=== PATIENT | male | born 1960 | race African-American/Black ===

== ENCOUNTER 2016-05-28 11:50 | Emergency (ER) | payer MEDICAID ==
[~2016-05-28] VITALS: Ht 177.8 cm; Wt 69.0 kg
[2016-05-28] MEDS ORDERED: TETANUS, DIPHTHERIA, PERTUSSIS VAC/PF 0.5ML (>7YR OLD) IM ONE (12:30)
[2016-05-28] MEDS ORDERED: LIDOCAINE HCL 1% 20ML VIAL (Pyxis) INJ INFIL ONE (13:15)
[2016-05-28 14:35] VITALS: BP 145/89
== END 2016-05-28 15:17 | disposition home or self-care (01) ==
LOC: ER 13:06
PROC: 0HQDXZZ Repair Right Lower Arm Skin, External Approach (ICD-10-PCS; principal; 2016-05-28)
DX: S61.511A Laceration without foreign body of right wrist, initial encounter (principal); I10 Essential (primary) hypertension; F17.290 Nicotine dependence, other tobacco product, uncomplicated; Z88.0 Allergy status to penicillin; W25.XXXA Contact with sharp glass, initial encounter; Y93.89 Activity, other specified; Y92.89 Other specified places as the place of occurrence of the external cause
CPT/HCPCS: 12001; 73100; 90471; 90715; 99284; A4217; J3490; X7700; Z7610

== ENCOUNTER 2016-05-30 12:49 | Emergency (ER) | payer MEDICAID ==
[~2016-05-30] VITALS: Ht 177.8 cm; Wt 70.0 kg
[2016-05-30 13:05] VITALS: BP 161/80
== END 2016-05-30 19:13 | disposition left against medical advice (07) ==
LOC: ER 13:14
DX: Z53.21 Procedure and treatment not carried out due to patient leaving prior to being seen by health care provider (principal)